=== PATIENT | male | born 1990 | race Caucasian/White ===

== ENCOUNTER 2021-04-22 21:42 | Emergency (ER) | payer OTHER, MEDICAID, SELFPAY ==
[2021-04-22 22:24] VITALS: BP 142/85; PULSE 63; RESP 17; TEMP 36.7; O2SAT 97; BMI 23.7
[2021-04-22 22:57] LABS: Ur Creatinine Normal (Normal); Ur Specific Gravity Normal (Normal); Urine Tetrahydrocannabinol Positive (Negative); Urine pH Normal (Normal)
[2021-04-22 22:58] LABS: UR Morphine/Opiate cutoff 300 Negative (Negative); Urine Amphetamines Negative (Negative); Urine Barbiturates Negative (Negative); Urine Benzodiazepines Positive (Negative); Urine Cocaine Negative (Negative); Urine MDMA Negative (Negative); Urine Methadone Negative (Negative); Urine Methamphetamines Negative (Negative); Urine Oxycodone Negative (Negative); Urine Phencyclidine Negative (Negative); Urine Tricyclic Antidepressant Negative (Negative)
[2021-04-22 22:59] LABS: Add Manual Diff / Slide Review NO; Basophils Absolute Auto 0 /uL (0-100); Basophils Percent Auto 0.6 % (0-2); Eosinophils Absolute Auto 100 /uL (0-450); Eosinophils Percent Auto 0.7 % (2-4); Hematocrit 40.5 % (41-53); Hemoglobin 13.9 g/dL (13.5-17.5); Lymphocytes Absolute Auto 2600 /uL (1100-4500); Lymphocytes Percent Auto 34.7 % (25-40); Mean Corpuscular HGB Conc 34.2 % (30-36); Mean Corpuscular Hemoglobin 30.6 PG (26-34); Mean Corpuscular Volume 89.5 fL (80-100); Monocytes Absolute Auto 600 /uL (0-900); Monocytes Percent Auto 7.8 % (3-14); Neutrophils Absolute Auto 4300 /uL (1500-7000); Neutrophils Percent Auto 56.2 % (50-75); Platelet Count 203 X10^3/uL (150-400); Red Blood Cell Count 4.52 X10^6/uL (4.5-5.9); White Blood Cell Count 7.6 X10^3/uL (4.5-11.0)
[2021-04-22 23:04] LABS: Alanine Aminotransferase 17 IU/L (<50); Albumin 4.8 g/dL (3.5-5.0); Albumin Globulin Ratio 1.6 (1.0-2.8); Alkaline Phosphatase 53 U/L (38-126); Aspartate Aminotransferase 31 IU/L (17-59); BUN Creatinine Ratio 13.8 (6-22); Bilirubin Total 0.7 mg/dL (0.2-1.3); Blood Urea Nitrogen 11 mg/dL (9-20); Calcium 9.9 mg/dL (8.4-10.2); Carbon Dioxide 29 mmol/L (22-32); Chloride 98 mmol/L (98-107); Estimated Glomerular Filt Rate > 60.0 mL/min (>60); Ethanol (ETOH) < 10 mg/dL; Glucose 96 mg/dL (70-100); HEMOLYSIS < 15 (0-50); Potassium 3.9 mmol/L (3.4-5.1); Sodium 136 mmol/L (137-145); Total Protein 7.8 g/dL (6.3-8.2)
[2021-04-22 23:56] LABS: COVID19 -Nasal RAPID Negative (Negative)
--- NOTE | 2021-04-23 02:29 | ED_ITS ---
HPI - Psych <Alex Huang DO - Last Filed: 04/24/21 02:57> General Chief Complaint: Psychiatric Symptoms Stated Complaint: psych meds not working, suicidal Time Seen by Provider: 04/22/21 22:28 Source: patient Mode of arrival: Ambulatory History of Present Illness HPI Narrative: 30-year-old male with history of mental health disease, recent 3 week hospitalization at [facility] and suicidal ideation with plans to slit his throat. He was discharged from [facility] on Wednesday and states his medications are not working. His father recently and appears to be a primary trigger for his current episode. He is otherwise well and free of complaint. He denies any chest pain or shortness of breath. He is not dizzy nor weak or lightheaded. Denies any fever or chills. Related Data Home Medications Medication Instructions Recorded Confirmed gabapentin 300 mg tablet 300 mg PO TID 04/22/21 04/22/21 guanfacine 1 mg tablet 1 mg PO BID 04/22/21 04/22/21 hydroxyzine pamoate 50 mg capsule 50 mg PO TID PRN 04/22/21 04/22/21 lorazepam 1 mg tablet 1 mg PO BID PRN 04/22/21 04/22/21 risperidone 1 mg tablet 1 mg PO BID 04/22/21 04/22/21 trazodone 100 mg tablet 100 mg PO QPM 04/22/21 04/22/21 Allergies Allergy/AdvReac Type Severity Reaction Status Date / Time No Known Drug Allergies Allergy Verified 04/22/21 22:24 Review of Systems <DO Cash Kirk Last Filed: 04/24/21 02:57> Review of Systems Narrative: GENERAL: Denies chills, fatigue, malaise, fever, sweats. HEENT: Denies sinus pain, ear pain, sore throat, difficulty swallowing, dizziness. RESPIRATORY: Denies dyspnea, cough, wheezing, hemoptysis, sputum. CARDIOVASCULAR: Denies chest pain, palpitations, orthopnea, edema, GASTROINTESTINAL: Denies nausea, vomiting, abdominal pain, diarrhea, constipation, melena. : Denies dysuria, frequency, incontinence, hematuria, urinary retention. MUSCULOSKELETAL: denies weakness, joint pain, or bony pain SKIN: Denies rash, skin lesions, or other NEUROLOGIC: Denies weakness, headache, numbness, change in speech, confusion, seizures, incoordination. PSYCHIATRIC: See HPI. 12 point review of systems is negative except for those stated above Patient History <Alex Huang DO - Last Filed: 04/24/21 02:57> Social History Smoking Status: Current every day smoker Smoking Status: Current every day smoker tobacco type: cigarettes Substance Use Type: marijuana Exam <Alex Huang DO - Last Filed: 04/24/21 02:57> Narrative Exam Narrative: GENERAL: [30] year old patient appears stated age. Well- developed patient, in mild distress. Resting comfortably HEAD: Atraumatic. Normocephalic. EYES: Pupils equal round and reactive. Extraocular motions intact. No scleral icterus. No injection or drainage. ENT: Nose without bleeding, purulent drainage. Throat without erythema, tonsillar hypertrophy or exudate. Airway patent. NECK: Trachea midline. Non tender CARDIOVASCULAR: Regular rate and rhythm without murmurs, gallops, or rubs. RESPIRATORY: Clear to auscultation. Breath sounds equal bilaterally. No wheezes, rales, or rhonchi. GASTROINTESTINAL: Abdomen soft, non-tender, nondistended. EXTREMITIES: No edema or joint tenderness. BACK: Nontender without deformity or crepitance. No flank tenderness. NEURO: AOx3. SKIN: No rash or erythema of visible areas Initial Vital Signs Initial Vital Signs: Vital Signs Temperature 98.0 F 04/22/21 22:24 Pulse Rate 63 04/22/21 22:24 Respiratory Rate 17 04/22/21 22:24 Blood Pressure 142/85 H 04/22/21 22:24 Pulse Oximetry 97 04/22/21 22:24 <Jn Edmondson DO - Last Filed: 04/23/21 11:28> Initial Vital Signs Initial Vital Signs: Vital Signs Temperature 98.0 F 04/22/21 22:24 Pulse Rate 63 04/22/21 22:24 Respiratory Rate 17 04/22/21 22:24 Blood Pressure 142/85 H 04/22/21 22:24 Pulse Oximetry 97 04/22/21 22:24 Course <Alex Huang DO - Last Filed: 04/24/21 02:57> Orders Ordered: Discontinued Medications Lorazepam (Lorazepam 0.5 Mg Tablet) 1 mg PO NOW ONE Stop: 04/23/21 08:42 Last Admin: 04/23/21 09:21 Dose: 1 mg Documented by: EMMA Nicotine (Nicotine 21 Mg Patch) 21 mg TOP NOW ONE Stop: 04/23/21 05:33 Last Admin: 04/23/21 05:44 Dose: 21 mg Documented by: ERI Trazodone HCl (Trazodone 100 Mg Tablet) 100 mg PO [facility]TIME [facility] Last Admin: 04/22/21 23:18 Dose: Not Given Documented by: ERI Vital Signs Vital signs: Vital Signs - 8 hr 04/22/21 22:24 Temperature 98.0 F Pulse Rate 63 Respiratory Rate 17 Blood Pressure 142/85 H Pulse Oximetry 97 <Jn Edmondson DO - Last Filed: 04/23/21 11:28> Orders Ordered: Discontinued Medications Lorazepam (Lorazepam 0.5 Mg Tablet) 1 mg PO NOW ONE Stop: 04/23/21 08:42 Last Admin: 04/23/21 09:21 Dose: 1 mg Documented by: EMMA Nicotine (Nicotine 21 Mg Patch) 21 mg TOP NOW ONE Stop: 04/23/21 05:33 Last Admin: 04/23/21 05:44 Dose: 21 mg Documented by: ERI Trazodone HCl (Trazodone 100 Mg Tablet) 100 mg PO BEDTIME [facility] Last Admin: 04/22/21 23:18 Dose: Not Given Documented by: ERI Vital Signs Vital signs: Vital Signs - 8 hr 04/22/21 22:24 Temperature 98.0 F Pulse Rate 63 Respiratory Rate 17 Blood Pressure 142/85 H Pulse Oximetry 97 MDM - Psych <Alex Huang DO - Last Filed: 04/24/21 02:57> Lab Data Result diagrams: 04/22/21 22:15 04/22/21 22:15 Labs: Lab Results 04/22/21 04/22/21 04/22/21 Range/Units 22:15 22:15 22:30 WBC 7.6 (4.5-11.0) X10^3/uL RBC 4.52 (4.5-5.9) X10^6/uL Hgb 13.9 (13.5-17.5) g/dL Hct 40.5 L (41-53) % MCV 89.5 (80-100) fL MCH 30.6 (26-34) PG MCHC 34.2 (30-36) % RDW 14.0 (11.6-14.8) % Plt Count 203 (150-400) X10^3/uL Neut % (Auto) 56.2 (50-75) % Lymph % (Auto) 34.7 (25-40) % [place] % (Auto) 7.8 (3-14) % Eos % (Auto) 0.7 L (2-4) % Baso % (Auto) 0.6 (0-2) % Neut # (Auto) 4300 (6182-6056) /uL Lymph # (Auto) 2600 (5143-3960) /uL [place] # (Auto) 600 (0-900) /uL Eos # (Auto) 100 (0-450) /uL Baso # (Auto) 0 (0-100) /uL Sodium 136 L (137-145) mmol/L Potassium 3.9 (3.4-5.1) mmol/L Chloride 98 (98-107) mmol/L Carbon Dioxide 29 (22-32) mmol/L BUN 11 (9-20) mg/dL Creatinine 0.80 (0.66-1.25) mg/dL Estimated GFR > 60.0 (>60) mL/min BUN/Creatinine Ratio 13.8 (6-22) Glucose 96 (70-100) mg/dL Calcium 9.9 (8.4-10.2) mg/dL Total Bilirubin 0.7 (0.2-1.3) mg/dL AST 31 (17-59) IU/L ALT 17 (<50) IU/L Alkaline Phosphatase 53 (38-126) U/L Total Protein 7.8 (6.3-8.2) g/dL Albumin 4.8 (3.5-5.0) g/dL Globulin 3.0 (1.7-4.1) g/dL Albumin/Globulin Ratio 1.6 (1.0-2.8) U Opiates 300ng/mL cut Negative (Negative) Ur Oxycodone Screen Negative (Negative) Urine Methadone Screen Negative (Negative) Ur Barbiturates Screen Negative (Negative) U Tricyclic Antidepress Negative (Negative) Ur Phencyclidine Scrn Negative (Negative) Ur Amphetamines Screen Negative (Negative) U Methamphetamines Scrn Negative (Negative) Ur MDMA Scrn (Ecstasy) Negative (Negative) U Benzodiazepines Scrn Positive H (Negative) Urine Cocaine Screen Negative (Negative) U Marijuana (THC) Screen Positive H (Negative) Ethyl Alcohol < 10 ( - 10) mg/dL SARS-CoV-2 (PCR) (Negative) 04/22/21 Range/Units 23:34 WBC (4.5-11.0) X10^3/uL RBC (4.5-5.9) X10^6/uL Hgb (13.5-17.5) g/dL Hct (41-53) % MCV (80-100) fL MCH (26-34) PG MCHC (30-36) % RDW (11.6-14.8) % Plt Count (150-400) X10^3/uL Neut % (Auto) (50-75) % Lymph % (Auto) (25-40) % [place] % (Auto) (3-14) % Eos % (Auto) (2-4) % Baso % (Auto) (0-2) % Neut # (Auto) (4925-3956) /uL Lymph # (Auto) (6472-3034) /uL [place] # (Auto) (0-900) /uL Eos # (Auto) (0-450) /uL Baso # (Auto) (0-100) /uL Sodium (137-145) mmol/L Potassium (3.4-5.1) mmol/L Chloride (98-107) mmol/L Carbon Dioxide (22-32) mmol/L BUN (9-20) mg/dL Creatinine (0.66-1.25) mg/dL Estimated GFR (>60) mL/min BUN/Creatinine Ratio (6-22) Glucose (70-100) mg/dL Calcium (8.4-10.2) mg/dL Total Bilirubin (0.2-1.3) mg/dL AST (17-59) IU/L ALT (<50) IU/L Alkaline Phosphatase (38-126) U/L Total Protein (6.3-8.2) g/dL Albumin (3.5-5.0) g/dL Globulin (1.7-4.1) g/dL Albumin/Globulin Ratio (1.0-2.8) U Opiates 300ng/mL cut (Negative) Ur Oxycodone Screen (Negative) Urine Methadone Screen (Negative) Ur Barbiturates Screen (Negative) U Tricyclic Antidepress (Negative) Ur Phencyclidine Scrn (Negative) Ur Amphetamines Screen (Negative) U Methamphetamines Scrn (Negative) Ur MDMA Scrn (Ecstasy) (Negative) U Benzodiazepines Scrn (Negative) Urine Cocaine Screen (Negative) U Marijuana (THC) Screen (Negative) Ethyl Alcohol ( - 10) mg/dL SARS-CoV-2 (PCR) Negative (Negative) Urine Dip Bedside Urine Glucose Negative Bedside Urine Bilirubin - Negative Bedside Urine Ketone - Negative Urine Specific [place] 1.010 Bedside Urine Occult Blood - Negative Bedside Urine pH 6.0 Bedside Urine Protein - Negative Bedside Urine Urobilinogen - Negative Bedside Urine Nitrite - Negative Bedside Urine Leukocytes - Negative Esterase MDM Narrative Medical decision making narrative: Patient medically cleared at 2:00 a.m., it is my opinion that the patient is certainly a candidate for inpatient psychiatric hospitalization given his suicidal ideation with plan, recent hospitalization an d lack of effective meaningful outcome from recent hospitalization. <Jn Edmondson, DO - Last Filed: 04/23/21 11:28> Lab Data Labs: Lab Results 04/22/21 04/22/21 04/22/21 Range/Units 22:15 22:15 22:30 WBC 7.6 (4.5-11.0) X10^3/uL RBC 4.52 (4.5-5.9) X10^6/uL Hgb 13.9 (13.5-17.5) g/dL Hct 40.5 L (41-53) % MCV 89.5 (80-100) fL MCH 30.6 (26-34) PG MCHC 34.2 (30-36) % RDW 14.0 (11.6-14.8) % Plt Count 203 (150-400) X10^3/uL Neut % (Auto) 56.2 (50-75) % Lymph % (Auto) 34.7 (25-40) % [place] % (Auto) 7.8 (3-14) % Eos % (Auto) 0.7 L (2-4) % Baso % (Auto) 0.6 (0-2) % Neut # (Auto) 4300 (5344-8995) /uL Lymph # (Auto) 2600 (8276-2334) /uL [place] # (Auto) 600 (0-900) /uL Eos # (Auto) 100 (0-450) /uL Baso # (Auto) 0 (0-100) /uL Sodium 136 L (137-145) mmol/L Potassium 3.9 (3.4-5.1) mmol/L Chloride 98 (98-107) mmol/L Carbon Dioxide 29 (22-32) mmol/L BUN 11 (9-20) mg/dL Creatinine 0.80 (0.66-1.25) mg/dL Estimated GFR > 60.0 (>60) mL/min BUN/Creatinine Ratio 13.8 (6-22) Glucose 96 (70-100) mg/dL Calcium 9.9 (8.4-10.2) mg/dL Total Bilirubin 0.7 (0.2-1.3) mg/dL AST 31 (17-59) IU/L ALT 17 (<50) IU/L Alkaline Phosphatase 53 (38-126) U/L Total Protein 7.8 (6.3-8.2) g/dL Albumin 4.8 (3.5-5.0) g/dL Globulin 3.0 (1.7-4.1) g/dL Albumin/Globulin Ratio 1.6 (1.0-2.8) U Opiates 300ng/mL cut Negative (Negative) Ur Oxycodone Screen Negative (Negative) Urine Methadone Screen Negative (Negative) Ur Barbiturates Screen Negative (Negative) U Tricyclic Antidepress Negative (Negative) Ur Phencyclidine Scrn Negative (Negative) Ur Amphetamines Screen Negative (Negative) U Methamphetamines Scrn Negative (Negative) Ur MDMA Scrn (Ecstasy) Negative (Negative) U Benzodiazepines Scrn Positive H (Negative) Urine Cocaine Screen Negative (Negative) U Marijuana (THC) Screen Positive H (Negative) Ethyl Alcohol < 10 ( - 10) mg/dL SARS-CoV-2 (PCR) (Negative) 04/22/21 Range/Units 23:34 WBC (4.5-11.0) X10^3/uL RBC (4.5-5.9) X10^6/uL Hgb (13.5-17.5) g/dL Hct (41-53) % MCV (80-100) fL MCH (26-34) PG MCHC (30-36) % RDW (11.6-14.8) % Plt Count (150-400) X10^3/uL Neut % (Auto) (50-75) % Lymph % (Auto) (25-40) % [place] % (Auto) (3-14) % Eos % (Auto) (2-4) % Baso % (Auto) (0-2) % Neut # (Auto) (6408-7707) /uL Lymph # (Auto) (9059-9104) /uL [place] # (Auto) (0-900) /uL Eos # (Auto) (0-450) /uL Baso # (Auto) (0-100) /uL Sodium (137-145) mmol/L Potassium (3.4-5.1) mmol/L Chloride (98-107) mmol/L Carbon Dioxide (22-32) mmol/L BUN (9-20) mg/dL Creatinine (0.66-1.25) mg/dL Estimated GFR (>60) mL/min BUN/Creatinine Ratio (6-22) Glucose (70-100) mg/dL Calcium (8.4-10.2) mg/dL Total Bilirubin (0.2-1.3) mg/dL AST (17-59) IU/L ALT (<50) IU/L Alkaline Phosphatase (38-126) U/L Total Protein (6.3-8.2) g/dL Albumin (3.5-5.0) g/dL Globulin (1.7-4.1) g/dL Albumin/Globulin Ratio (1.0-2.8) U Opiates 300ng/mL cut (Negative) Ur Oxycodone Screen (Negative) Urine Methadone Screen (Negative) Ur Barbiturates Screen (Negative) U Tricyclic Antidepress (Negative) Ur Phencyclidine Scrn (Negative) Ur Amphetamines Screen (Negative) U Methamphetamines Scrn (Negative) Ur MDMA Scrn (Ecstasy) (Negative) U Benzodiazepines Scrn (Negative) Urine Cocaine Screen (Negative) U Marijuana (THC) Screen (Negative) Ethyl Alcohol ( - 10) mg/dL SARS-CoV-2 (PCR) Negative (Negative) Urine Dip Bedside Urine Glucose Negative Bedside Urine Bilirubin - Negative Bedside Urine Ketone - Negative Urine Specific [place] 1.010 Bedside Urine Occult Blood - Negative Bedside Urine pH 6.0 Bedside Urine Protein - Negative Bedside Urine Urobilinogen - Negative Bedside Urine Nitrite - Negative Bedside Urine Leukocytes - Negative Esterase MDM Narrative Medical decision making narrative: Patient medically cleared at 2:00 a.m., it is my opinion that the patient is certainly a candidate for inpatient psychiatric hospitalization given his suicidal ideation with plan, recent hospitalization and lack of effective meaningful outcome from recent hospitalization. Dr edmondson: Received turned over from Dr Huang. Reviewed patient's history and physical exam. He has been medically cleared. He is alert oriented x3. GCS of 15 in my opinion has the capacity to make decisions. He is not clinically intoxicated. Patient has been seen by social work. He states now the suicidal thoughts he had last evening are gone. He states that what triggered it was he has been staying with a friend of his father's hand last night this individual told him that he had to leave the house. He states that this triggered a thoughts although he is not currently having them. He has a clinic that he has been seen at in the past and would like to follow-up with them. I do not think that the patient would meet any involuntary hospital criteria. Will discharge home. Discharge Plan Departure Patient Disposition: Home Clinical Impression: Suicidal ideation Instructions: DI for Suicidal Ideation-Adult Activity Restrictions/Additional Instructions: I do recommend you continue all of your medications as directed. Contact your primary care provider for follow-up. I do recommend that you follow-up at the mental health clinic that she had been seen at at the past. You can return to the emergency department for any new or worsening symptoms Prescriptions: No Action gabapentin 300 mg Tablet 300 mg PO TID RF: 0 hydroxyzine pamoate 50 mg Capsule 50 mg PO TID PRN (Reason: Anxiety) RF: 0 trazodone 100 mg Tablet 100 mg PO QPM RF: 0 guanfacine 1 mg Tablet 1 mg PO BID RF: 0 risperidone 1 mg Tablet 1 mg PO BID RF: 0 lorazepam 1 mg Tablet 1 mg PO BID PRN (Reason: Anxiety) RF: 0
--- NOTE | 2021-04-23 05:34 | PC.NURSE ---
Pt request nicotine patch, notiftyesha
[2021-04-23] MEDS: NICOTINE 21 MG PATCH TOP (05:44)
--- NOTE | 2021-04-23 08:31 | PC.NURSE ---
put patients phone on the metal numerical tool programmer at nursing station
--- NOTE | 2021-04-23 09:00 | PC.NURSE ---
STILL OPERATOR BATCH OR CONTINUOUS in with pt
[2021-04-23] MEDS: LORazepam 0.5 MG TABLET 1 MG PO (09:21)
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
--- NOTE | 2021-04-23 11:09 | PC.NURSE ---
Spoke with Ruthie at [facility] and gave a pt report. She will pass his information on to intake and they will call back
[2021-04-23 11:36] VITALS: BP 137/96; PULSE 94; RESP 18; O2SAT 98
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
== END 2021-04-23 11:55 | disposition home or self-care (01) ==
PROVIDERS: Emergency Medicine; Emergency Provider Emergency Medicine
DX: R45.851 Suicidal ideations (principal); Z20.822 Contact with and (suspected) exposure to COVID-19
CPT/HCPCS: 80053; 80305; 80320; 81003; 85025; 87635; 93005; 93010; 99284; C9803